=== PATIENT | male | born 1985 | race Caucasian/White ===

== ENCOUNTER 2019-08-31 12:55 | Emergency (ER) | payer OTHER ==
[~2019-08-31] VITALS: Ht 182.9 cm; Wt 140.6 kg
[~2019-08-31 12:55] MED LIST: CARISOPRODOL 3350 MG PO; IBUPROFEN 800800 M1 PO
[2019-08-31] MEDS ORDERED: NORCO 5-325 TA1 EAC1 PO (13:21)
[2019-08-31] MEDS ORDERED: CLEOCIN HCL300 MG PO (13:21)
[2019-08-31 14:57] VITALS: BP 152/92
== END 2019-08-31 14:58 | disposition home or self-care (01) ==
LOC: M.ERS 12:55
DX: K04.7 Periapical abscess without sinus (principal)

== ENCOUNTER 2020-11-22 12:12 | Emergency (ER) | payer OTHER ==
[~2020-11-22] VITALS: Ht 182.9 cm; Wt 149.7 kg
[~2020-11-22 12:12] MED LIST changes: +CLEOCIN HCL300 MG PO; +NORCO 5-325 TA1 EAC1 PO
[2020-11-22 13:26] LABS: ABSOLUTE BASOPHILS 0.1 thou/uL (0.0-0.2); ABSOLUTE EOSINOPHILS 0.2 thou/uL (0.0-0.7); ABSOLUTE LYMPHOCYTES 1.5 thou/uL (0.8-5.3); ABSOLUTE MONOCYTES 0.6 thou/uL (0.0-1.2); ABSOLUTE NEUTROPHILS 6.1 thou/uL (1.6-8.1); EOSINOPHILS 2.4 %; HEMATOCRIT 40.7 % (42.0-52.0); HEMOGLOBIN 13.8 gm/dL (14.0-18.0); LYMPHOCYTES 17.4 %; MCH 30.2 pg (26.0-34.0); MCHC 33.9 g/dL (28.0-37.0); MCV 89.3 fL (80.0-100.0); MPV 7.1 fl. (7.2-11.1); NUCLEATED RBCS 0 /100WBC; PLATELET COUNT* 359 thou/uL (150-400); POLYS 72.2 %; RBC 4.56 mil/uL (4.50-6.00); RDW-CV 12.6 % (10.5-14.5); WBC 8.4 thou/uL (4.0-11.0)
[2020-11-22 13:36] LABS: CALCIUM 9.1 mg/dL (8.5-10.1); POTASSIUM 3.7 mmol/L (3.5-5.1)
[2020-11-22 13:39] LABS: APTT 27.6 Seconds (25.0-31.3); PROTIME 11.1 Seconds (9.20-11.50)
[2020-11-22 13:41] LABS: ALBUMIN 2.8 g/dL (3.4-5.0); TOTAL BILIRUBIN 0.3 mg/dL (<0.1-1.0); TOTAL PROTEIN 7.5 g/dL (6.4-8.2)
[2020-11-22 14:35] LABS: ESR (SEDRATE) 78 mm/hr (0-15)
[2020-11-22] MEDS ORDERED: PREDNISONE 20 M20 M1 PO (14:59)
[2020-11-22] MEDS ORDERED: HYDROCODON-ACE1 EAC7 PO (14:59)
[2020-11-22] MEDS ORDERED: DOXYCYCLINE 10100 MG PO (14:59)
[2020-11-22] MEDS ORDERED: IBUPROFEN 800800 M1 PO (16:09)
[2020-11-22 16:32] VITALS: BP 126/82
== END 2020-11-22 16:39 | disposition home or self-care (01) ==
LOC: M.ERS 12:12
PROVIDERS: Nurse Practitioner Family
DX: L03.115 Cellulitis of right lower limb (principal); I77.6 Arteritis, unspecified; Z91.02 Food additives allergy status; Z91.011 Allergy to milk products

== ENCOUNTER 2020-12-15 14:48 | Emergency (ER) | payer OTHER ==
[~2020-12-15] VITALS: Ht 182.9 cm; Wt 149.7 kg
[~2020-12-15 14:48] MED LIST changes: +DOXYCYCLINE 10100 MG PO; +HYDROCODON-ACE1 EAC7 PO; +PREDNISONE 20 M20 M1 PO
[2020-12-15] MEDS ORDERED: DOXYCYCLINE 10100 MG PO (16:15)
[2020-12-15 16:23] VITALS: BP 147/92
== END 2020-12-15 16:24 | disposition home or self-care (01) ==
LOC: M.ERS 14:48
DX: M79.661 Pain in right lower leg (principal); L03.115 Cellulitis of right lower limb; Z76.0 Encounter for issue of repeat prescription